=== PATIENT | male | born 1960 | race African-American/Black ===

== ENCOUNTER 2021-03-13 11:12 | Observation (INO) | payer SELFPAY ==
[2021-03-13 18:49] VITALS: BMI 28.8
[2021-03-13] MEDS ORDERED: Atorvastatin Calcium 20 MG TAB PO SCH (21:00)
[2021-03-14 05:38] LABS: Hemoglobin A1c 5.6 % (4.0-6.0)
[2021-03-14 05:56] LABS: Cardiac Risk 5.8 (Less than 4.5)
[2021-03-14 08:25] VITALS: BP 146/67; TEMP 97.5
[2021-03-14] MEDS ORDERED: Aspirin 81 mg Enteric Coated Tablet PO SCH (09:00)
[2021-03-14] MEDS ORDERED: Amlodipine 5 MG TAB PO SCH (09:00)
[2021-03-14 10:00] LABS: CKMB 2.6 ng/mL (0-6.6)
== END 2021-03-14 10:11 | disposition home or self-care (01) ==
LOC: 2SE 18:00
PROVIDERS: ADMIT Internal Medicine; ATTEND Internal Medicine
DX: R42 Dizziness and giddiness (principal); R77.8 Other specified abnormalities of plasma proteins; I10 Essential (primary) hypertension; R73.03 Prediabetes; E78.5 Hyperlipidemia, unspecified; F17.210 Nicotine dependence, cigarettes, uncomplicated; R51.9 Headache, unspecified; G89.29 Other chronic pain
CPT/HCPCS: 36415; 80061; 82553; 83036; 84443; 84484; G0378